=== PATIENT | male | born 1970 ===

== ENCOUNTER 2019-05-27 03:45 | Inpatient (IN) ==
[2019-05-27] MEDS ORDERED: MORPHINE IV ONE ×2 (03:47→07:52)
[2019-05-27] MEDS ORDERED: ZOFRAN IV ONE ×2 (03:47→06:39)
[2019-05-27] MEDS ORDERED: NS 1,000 ML IV ONE (03:47)
--- NOTE | 2019-05-27 03:51 | PROVIDER DOCUMENTATION ---
HPI-General Adult - General Chief Complaint: Nausea/Vomiting Stated Complaint: CROHNS-POSS BLOCKAGE/NAUSEA Time Seen by Provider: 05/27/19 03:46 Source: patient Allergies/Adverse Reactions: Patient Allergies Allergy/AdvReac Type Severity Reaction Status Date / Time meperidine [From Demerol] AdvReac Severe "aggression Verified 05/27/19 03:59 " Home Medications: Home Medication List Medication Instructions Recorded Confirmed Last Taken Type Budesonide [Budesonide ER] 9 mg PO DAILY 05/27/19 05/27/19 05/26/19 History Celecoxib [Celebrex] 200 mg PO DAILY 05/27/19 05/27/19 05/26/19 History Cyanocobalamin (Vitamin B-12) 1,000 mcg IM ORDERED 05/27/19 05/27/19 05/23/19 History [B-12 Compliance] Cyclobenzaprine [Flexeril] 10 mg PO TID 05/27/19 05/27/19 05/26/19 History Escitalopram Oxalate [Lexapro] 20 mg PO DAILY 05/27/19 05/27/19 05/26/19 History Folic Acid 1 mg PO DAILY 05/27/19 05/27/19 05/26/19 History Gabapentin [Neurontin] 300 mg PO TID 05/27/19 05/27/19 05/26/19 History Latanoprost 0.005% Oph Soln 1 drp BOTH EYES HS 05/27/19 05/27/19 05/26/19 History [Xalatan 0.005% Oph Soln] Losartan Potassium [Cozaar] 100 mg PO DAILY 05/27/19 05/27/19 05/26/19 History Methotrexate Sodium [Methotrexate] 25 mg SQ Q7D 05/27/19 05/27/19 05/23/19 History Modafinil 200 mg PO DAILY 05/27/19 05/27/19 05/26/19 History Triamterene/Hctz [Maxzide 75/50] 0.5 tab PO DAILY 05/27/19 05/27/19 05/26/19 History Ustekinumab [Stelara] 90 mg SQ ORDERED 05/27/19 05/27/19 05/24/19 History - History of Present Illness -Gen Adult Nature of Presenting Problems: Pt presents with ap and n/v, started 5 hours ago, pmh of crohns and feels similar to prior, admitted last month for the same, pt denies f/c, garcía, cp, sob, cough, diarrhea, pt is lying in bed in no acute distress. Location of Pain/Injury: reports: abdomen Pain Radiation: reports: no radiation Quality of Pain: reports: cramping Severity: reports: moderate Onset/Duration: reports: 4-6 hours ago Timing: reports: still present Context/Activities at Onset: reports: none Modifying Factors: improves with: nothing Associated Symptoms: reports: nausea, vomiting Similar Symptoms Previously?: Yes Recently seen or treated by another doctor?: Yes Review of Systems - Adult - REVIEW OF SYSTEMS - ADULT Constitutional: reports: no symptoms reported Eyes: reports: no symptoms reported Ears, Nose, Mouth & Throat: reports: no symptoms reported Cardiovascular: reports: no symptoms reported Respiratory: reports: no symptoms reported Gastrointestinal: reports: see HPI Genitourinary: reports: no symptoms reported Musculoskeletal: reports: no symptoms reported Integumentary: reports: no symptoms reported Neurological: reports: no symptoms reported Psychiatric: reports: no symptoms reported Endocrine: reports: no symptoms reported Hematologic/Lymphatic: reports: no symptoms reported Allergic/Immunologic: reports: no symptoms reported All Other Systems: Reviewed and Negative Past History - Adult - PAST MEDICAL HISTORY-ADULT Review of Records: reports: Old Records Reviewed, Nursing Assessment Review, Medications Reviewed, Social history reviewed & non-contributory. Major Childhood Illnesses: reports: denies history Cardiovascular: reports: denies history Respiratory: reports: denies history Gastrointestinal: reports: Crohn's Obstetrical/Gynecological: reports: denies history Genitourinary: reports: denies history Musculoskeletal: reports: denies history Neurological: reports: denies history Endocrine/Immune: reports: denies history Other Conditions: reports: denies history Physical Exam-General - PHYSICAL EXAM-ADULT Initial Vital Signs Reviewed: Yes - CONSTITUTIONAL General Appearance: appears well - EYES Eyes: PERRL/EOMI - HEAD, EARS, NOSE, MOUTH & THROAT HENMT: normocephalic/atraumatic - NECK Neck: normal inspection - RESPIRATORY Respiratory: lungs clear, no respiratory distress, no accessory muscle use - CARDIOVASCULAR Cardiovascular: regular rate, rhythm - GASTROINTESTINAL (ABDOMEN) Abdominal Exam: normal bowel sounds, non tender, soft, no organomegaly - LYMPHATIC Lymphatic: no adenopathy - MUSCULOSKELETAL Back Exam: normal inspection Extremity: normal range of motion - SKIN Integumentary: normal color - NEUROLOGIC Neurologic: grossly normal - PSYCHIATRIC Psych/Mental Status: normal mood/affect Progress - PLAN OF CARE/RESULTS Progress/Plan/Lab Results: Orders Category Date Time Status CT ABD/PELVIS W/PO AND IV CON [CT] Stat Exams 05/27/19 03:46 Ordered CBC WITH ELECTRONIC DIFF [HEME] Stat Lab 05/27/19 03:46 Uncollected COMPREHENSIVE METABOLIC PANEL [CHEM] Stat Lab 05/27/19 03:46 Uncollected LACTATE, PLASMA [CHEM] Stat Lab 05/27/19 03:46 Uncollected LIPASE [CHEM] Stat Lab 05/27/19 03:46 Uncollected Morphine Med 05/27/19 03:47 Once 4 mg IV NOW ONE Ns 1000 ml IV Bolus X1 Med 05/27/19 03:47 Ordered 0.9% Sodium Chloride Inj [Ns] 1,000 ml IV 999 mls/hr Ondansetron [Zofran] Med 05/27/19 03:47 Once 8 mg IV NOW ONE Result Diagrams: 05/27/19 03:49 05/27/19 03:49 Departure - Departure Date of Disposition Decision: 05/27/19 Time of Disposition Decision: 06:41 DIAGNOSIS: SBO (small bowel obstruction) Exacerbation of Crohn's disease Qualifiers: Digestive disease complication type: with intestinal obstruction Qualified Code(s): K50.912 - Crohn's disease, unspecified, with intestinal obstruction Disposition: ADMITTED INPATIENT 09 Certified Medical Emergency: Emergent Condition: Stable Referrals and Follow-Ups: None,PCP [NON-STAFF PROVIDER] - - Critical Care Note This patient required my direct & personal management of CC.: No Attestation - Physician/ DEIRDRE Attestation Patient care was provided by Advanced Practice Provider:: No The physician spent face to face time with patient:: Yes Advanced Practice Provider documentation review:: Supervising physician onsite and consulted in the evaluation and care of this patient. The physician did have a face to face encounter with the patient.
[2019-05-27 04:31] LABS: BASO# 0.01 X1000 (0.0-0.2); BASO% 0.1 % (0.0-0.8); EOS# 0.09 X1000 (0.0-0.7); EOS% 0.5 % (0.0-10.0); HEMATOCRIT 42.9 % (42.0-52.0); HEMOGLOBIN 13.1 g/dL (14.0-18.0); IMM GRAN# 0.05 X1000 (0.0-0.04); IMM GRAN% 0.3 % (0.0-0.5); LYMPH# 0.87 X1000 (1.2-3.4); LYMPH% 4.9 % (20.5-51.1); MCH 26.3 PG (27-31); MCHC 30.5 g/dL (33-37); MONO# 0.75 X1000 (0.11-0.59); MONO% 4.3 % (1.7-9.3); MPV 9.6 FL (7.4-10.4); NEUT# 15.82 X1000 (1.4-6.5); NEUT% 89.9 % (42.2-75.2); PLT 505 X1000 (130-400); RBC 4.99 XMIL (4.7-6.1); RDW 20.2 % (11.5-14.5); WBC 17.59 X1000 (4.8-10.8)
[2019-05-27 04:51] LABS: AGAP 20; ALB/GLOB RATIO 1.6; ALBUMIN 4.4 g/dL (3.5-5.0); ALKALINE PHOSPHATASE 81 U/L (32-122); BUN 18 mg/dL (8-22); CHLORIDE 96 mmol/L (98-107); COSMO 286; CREATININE 0.9 mg/dL (0.7-1.2); GLUCOSE 152 mg/dL (70-104); GOT 16 U/L (10-34); GPT 18 U/L (10-44); LIPASE 21 U/L (13-60); POTASSIUM 3.4 mmol/L (3.5-5.1); SODIUM 141 mmol/L (136-145); TCO2 25 mmol/L (25-35); TOTAL BILIRUBIN 0.54 mg/dL (0.20-1.00); TOTAL PROTEIN 7.1 g/dL (6.3-8.3)
[2019-05-27 05:28] LABS: CALCIUM 9.9 mg/dL (8.8-10.2)
--- NOTE | 2019-05-27 06:20 | Diag Imaging Result Doc PS360 ---
EXAM: CT ABD/PELVIS W/PO AND IV CON HISTORY: pmh of crohns, n/v, eval for SBO TECHNIQUE: CT abdomen and pelvis with intravenous contrast COMPARISON: CT report from 04/21/2019 FINDINGS: No calcified gallstones or adjacent inflammation. Tiny hepatic cyst, but no other hepatic abnormality. Normal spleen. No inflammation about the pancreas. Normal adrenal glands and kidneys. No hydronephrosis. Normal aorta. The stomach is distended and there are multiple overly distended small bowel loops in the mid and left abdomen. These measure up to 5.6 cm in diameter. The distal small bowel loops are not dilated. There are postsurgical changes in the right lower quadrant. The urinary bladder is distended and is normal. Normal prostate. Trace fluid in the pelvis. Small mesenteric nodes. IMPRESSION: Small bowel obstruction likely in the mid jejunum. This exam was performed using automated exposure control, adjustment of mA or kV according to patient size, and/or use of iterative reconstruction technique. Electronically signed by Dougie Bhatti 05/27/2019 6:18 AM
--- NOTE | 2019-05-27 07:28 | Diag Imaging Result Doc PS360 ---
EXAM: CHEST-PORTABLE 05/27/2019 HISTORY: NGT placement TECHNIQUE: AP portable at 0707 COMMENT: There is an NG tube with its tip in the stomach. There are multiple surgical clips in the right lower quadrant. There is a nonspecific bowel gas pattern. There are no previous studies. IMPRESSION: NG tube in the stomach. Electronically signed by Gen Rodriguez 05/27/2019 7:25 AM
[2019-05-27] MEDS ORDERED: OFIRMEV 1000 MG/ISOTONIC SOLN 1,000 MG/100 ML BOTTLE IV PRN (08:25)
[2019-05-27] MEDS ORDERED: ROBAXIN 1,000 MG in NS 50 ML IV PRN (08:25)
[2019-05-27] MEDS ORDERED: MORPHINE IV PRN (08:25)
[2019-05-27] MEDS ORDERED: ZOFRAN IV PRN (08:25)
[2019-05-27] MEDS ORDERED: APRESOLINE IV PRN (08:25)
[2019-05-27] MEDS ORDERED: SODIUM CHLORIDE 0.9% INJ SCH (08:30)
[2019-05-27] MEDS: NS 1,000 ML IV SCH ×2 (09:16→20:18)
[2019-05-27] MEDS: PROTONIX IV SCH ×2 (09:20→20:23)
[2019-05-27] MEDS: ZOSYN 3.375 GM in NS 50 ML IV SCH ×3 (09:23→20:19)
[2019-05-27 09:36] LABS: HEMOGLOBIN A1C 5.1 % (4.8-6.0)
[2019-05-27 09:50] LABS: FREE T4 0.97 ng/dL (0.93-1.70); TSH 3.89 uIUmL (0.27-4.20)
[2019-05-27] MEDS ORDERED: SODIUM CHLORIDE 0.9% INJ PRN (10:17)
[2019-05-27] MEDS ORDERED: PHENERGAN IV PRN (10:17)
[2019-05-27 11:12] LABS: URINE SOURCE CLEAN CATCH
[2019-05-27 11:17] LABS: BILIRUBIN URINE NEGATIVE (NEGATIVE); BLOOD URINE NEGATIVE (NEGATIVE); COLOR YELLOW; GLUCOSE URINE NEGATIVE (NEGATIVE); KETONE URINE TRACE mg/dL (NEGATIVE); LEUKOCYTES URINE NEGATIVE (NEGATIVE); NITRITE URINE NEGATIVE (NEGATIVE); PROTEIN URINE 30 mg/dL (NEGATIVE); TURBIDITY URINE CLEAR (CLEAR); UROBILINOGEN URINE NORMAL (NORMAL)
[2019-05-27 11:19] LABS: UR EPITHELIAL CELLS <10 /HPF (<10); URINE BACTERIA NEGATIVE /HPF; URINE RBC <10 /HPF (<10); URINE WBC <10 /HPF (<10)
[2019-05-27] MEDS: SOLU-MEDROL IV SCH ×2 (12:45→20:19)
--- NOTE | 2019-05-27 20:18 | HISTORY AND PHYSICAL ---
PRIMARY CARE PROVIDER: Dr. Lopez PRIMARY PLANT PATHOLOGY TEACHER: Located in [place] at the [facility], named Wil Bradshaw MD. CHIEF COMPLAINT: Epigastric abdominal pain with distention and severe nausea. HISTORY OF PRESENT ILLNESS: Mr. Jatin Espinoza is a 49-year-old male with a medical history of Crohn disease, on 3-medication treatment including budesonide, methotrexate, and Stelara. He has had a history of 2 colon resection of the terminal ileum secondary to Crohn's. He is followed by a Dr. Bradshaw in [place] at the [facility]. The patient states that really symptoms started back in June, approximately June 22. He was admitted to [facility], diagnosed with a small bowel obstruction, which resolved. He was okay until April 21. He went back to [facility] with a gastrointestinal bleed where he received 3 units of packed red blood cells. He did not have an upper or lower endoscopy after they spoke with his stove mechanic in [place], who wanted to defer those procedures, and then today, or actually last night around 10:30, he was here at work and started developing sudden onset of epigastric pain with abdominal distention, severe nausea, sweating, and weakness. His last bowel movement was at 11 p.m. Symptoms continued until he came to the emergency department where a CT scan diagnosed him with small bowel obstruction, likely in the mid jejunum. NG tube was placed. Antiemetics and pain medication started. Intravenous fluids started. He also has has leukocytosis and lactic acidosis with no obvious source of infection at this time. So, again fluid started. Antibiotics, including Zosyn, has been started. Consult in for General Surgery Dr. Rhodes. We will get him started on IV steroids. The patient feels like he does not need a GI consult with IV steroids, so we will defer that for now, and if needed we can also be in contact with his primary stove mechanic at the [facility]; however, it is about to be the weekend and they are not usually available over the weekend. The patient states that his Stelara, he normally was taking it every other month, but when he started having symptoms of Crohn's again, which he had been remained in remission for several years up until this past year, the Stelara was increased to monthly, and in July he is to follow up with his primary stove mechanic to reevaluate if the Stelara is working. Currently, vital signs are stable. NG tube is suctioning bile colored gastric secretions. The pain is being controlled. Antiemetics are controlling the nausea, so he is being admitted to the surgical floor for evaluation and further treatment. PAST MEDICAL HISTORY: 1. Crohn's disease. Apparently, he was in remission for several years up until June 2018. 2. History of small bowel obstructions with the last one being June 22 where he was followed at [facility]. 3. OCD. 4. Chronic pain syndrome with herniated disk in L3 through L5. 5. Anemia prevention while on B12 and folic acid secondary to having colon resections. 6. Hypertension. 7. He does not have glaucoma, but he is on preventative medication, Xalatan to help prevent it. 8. lieutenant shift supervisor sleepiness, is currently on modafinil for shift work fatigue prevention. 9. Gastrointestinal bleed. PAST SURGICAL HISTORY: He has had terminal ileum colon resection x2 in the right lower quadrant. SOCIAL HISTORY: Denies tobacco, alcohol or illicit drug use. He is . His daughter just had her 2-year-old birthday yesterday. 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 FAMILY HISTORY: Mother's side of the family has heart disease. Father's side of family has heart disease, and apparently his grandfather on his father's side had a heart attack in his late 40s. ALLERGIES: Demerol causes agitation. HOME MEDICATIONS: 1. Vitamin B12 at 1000 mcg intramuscular. 2. Budesonide 9 mg p.o. daily. 3. Celebrex 200 mg p.o. daily. 4. Cozaar 100 mg p.o. daily. 5. Flexeril 10 mg p.o. t.i.d. 6. Folic acid 1 mg p.o. daily. 7. Lexapro 20 mg p.o. daily. 8. Maxzide 75/50 one-half tablet p.o. daily. 9. Methotrexate 25 mg subcutaneous every 7 days. 10. Modafinil 200 mg p.o. daily. 11. Neurontin 300 mg p.o. t.i.d. 12. Stelara 90 mg subcutaneously monthly. 13. Latanoprost eye drop to both eyes nightly. REVIEW OF SYSTEMS: Fourteen point review of systems are complete and all were negative except for those mentioned in above HPI. He denies any fever or any other symptoms. PHYSICAL EXAMINATION: VITAL SIGNS: Temperature 97.8 degrees, heart rate 96, respiratory rate 18, blood pressure 131/83, and O2 saturation 95% on room air. He is 6 feet 4 inches tall, 215 pounds, BMI is 29.2. GENERAL: Mr. Jatin Espinoza is a 49-year-old male. He is in no acute distress. He is able answer questions appropriately. HEENT: Atraumatic, normocephalic. Pupils equal, round, reactive to light. Extraocular movements intact. Mucous membranes are dry. The left naris has NG tube. There is some old bloody drainage around that site. An NG tube was better secured with NG tube tape. NECK: Trachea midline. CARDIOVASCULAR: S1, S2. Regular rate and rhythm. No rubs, gallops, murmurs. No lower extremity edema. There are +2 dorsalis and radial pulses. Negative JVD or carotid bruits. PULMONARY: Clear to auscultate. Bilateral breath sounds. No accessory muscle use or work of breathing noted. ABDOMEN: Soft, tender in the epigastric region. Hypoactive bowel sounds. EXTREMITIES: Moves all extremities equally. Full range of motion. NEUROLOGIC: A and O x3. Follows commands. Sensory is intact. SKIN: Warm, dry, intact. LABORATORY DATA: White blood cells 17,000, hemoglobin 13, hematocrit 42, platelet count 505,000. Sodium 141, potassium 3.4, BUN 18, creatinine 0.9, glucose 152. Hemoglobin A1c is 5.1, calcium 9.9, bilirubin 0.54, AST 16, ALT 18, albumin 4.4, triglycerides 126, total cholesterol 180, LDL 118, lipase 21, serum lactate 3 and then a repeat was 1.3. TSH 3.89, free T4 is 0.97. IMAGING STUDIES: Chest x-ray, NG tube is in the stomach. Otherwise, no acute findings. Abdominal and pelvic CT, small bowel obstruction, likely in the mid jejunum. ASSESSMENT AND PLAN: 1. Small bowel obstruction with history of small bowel obstructions and 2 colon resections. Nasogastric tube is in place to low wall suction. Dr. Rhodes with general surgery has been consulted. He is being kept nothing by mouth. Pain medication is morphine, antiemetics are Zofran or Phenergan. 2. Crohn's disease. CRP has been ordered, currently pending. Technical Support Assistant is Wil Bradshaw MD, at [facility] in [place]. For now, budesonide, methotrexate, and Stelara are on hold, but I believe he added Stelara a few days ago and he gets that monthly. He will be reevaluated as that was changed from every 2 months to every 1 month and that is scheduled for July with his stove mechanic for reevaluation of that, so those medications will be on hold. We will do IV steroids scheduled for now. 3. Please add past medical history. 4. GI bleed. 5. Recent gastrointestinal bleed on April 21 where he received 3 units of packed red blood cells at [facility]. No interventions other than blood transfusion at that time. No signs or symptoms of bleeding. At this time the nasogastric tube has green bile, gastric secretions, and the hemoglobin and hematocrit are stable at 13 and 42. He is on B12 and folic acid at home. Those are currently going to be held for now. 6. Hypertension. Antihypertensives will be held and that is by mouth, so we will do as needed hydralazine. He is currently stable in the 130 systolic. 7. Chronic pain syndrome with L3 through L5 herniated disk. He is on Celebrex, Neurontin, and Flexeril at home. Currently, as needed morphine for the abdominal pain, which can also help with back pain, but he will also have as needed IV Robaxin as apparently the Flexeril is a scheduled medication for him. 8. Glaucoma prevention. We will continue his latanoprost. 9. lieutenant shift supervisor fatigue. He is on modafinil for that and that will be held. 10. Deep venous thrombosis prophylaxis. Sequential compression devices. He has had a history of recent gastrointestinal bleeding and he also has a little blood around the nasogastric tube site placement. Dictated by ANNIE Rogers for Leonard Jimenez MD cc: ANNIE Rogers MD Pt seen and examined; will place on steroids and consult Sarah agree with above plan as described; abdominal exam is soft distended but hypoactive bowel sounds. MTDD
[2019-05-27] MEDS: XALATAN 0.005% OPH SOLN BOTH EYES SCH (21:31)
[2019-05-27] MEDS: FLAGYL 500 MG/NS 500 MG/100 ML IVPB IV SCH (23:11)
[2019-05-28] MEDS: ZOSYN 3.375 GM in NS 50 ML IV SCH ×3 (02:20→16:02)
[2019-05-28] MEDS: FLAGYL 500 MG/NS 500 MG/100 ML IVPB IV SCH ×4 (04:43→22:41)
[2019-05-28] MEDS: SOLU-MEDROL IV SCH ×3 (04:43→21:00)
[2019-05-28] MEDS: NS 1,000 ML IV SCH ×2 (06:46→21:27)
[2019-05-28 07:33] LABS: BASO# 0.01 X1000 (0.0-0.2); BASO% 0.1 % (0.0-0.8); EOS# 0.05 X1000 (0.0-0.7); EOS% 0.4 % (0.0-10.0); HEMATOCRIT 35.9 % (42.0-52.0); HEMOGLOBIN 11.1 g/dL (14.0-18.0); IMM GRAN# 0.03 X1000 (0.0-0.04); IMM GRAN% 0.3 % (0.0-0.5); LYMPH# 0.48 X1000 (1.2-3.4); LYMPH% 4.3 % (20.5-51.1); MCH 26.9 PG (27-31); MCHC 30.9 g/dL (33-37); MCV 87.1 FL (81-99); MONO# 0.28 X1000 (0.11-0.59); MONO% 2.5 % (1.7-9.3); MPV 9.9 FL (7.4-10.4); NEUT# 10.36 X1000 (1.4-6.5); NEUT% 92.4 % (42.2-75.2); PLT 371 X1000 (130-400); RBC 4.12 XMIL (4.7-6.1); RDW 20.5 % (11.5-14.5); WBC 11.21 X1000 (4.8-10.8)
[2019-05-28 07:48] LABS: BANDS 4 % (0-1); LYMPHS 4 % (21-51); MONO 2 % (1-9); SEGS 90 % (42-75)
[2019-05-28] MEDS ORDERED: LOVENOX SUBQ SCH (09:00)
[2019-05-28] MEDS ORDERED: ENTOCORT EC PO SCH (09:00)
--- NOTE | 2019-05-28 09:10 | Diag Imaging Result Doc PS360 ---
EXAM: ABDOMEN FLAT/UPRIGHT HISTORY: sbo f/u TECHNIQUE: Two views COMPARISON: None. FINDINGS: There is oral contrast within the colon. There are several small bowel loops which are distended with air in the mid abdomen with air-fluid levels. There are surgical clips and sutures in the right lower quadrant. No organomegaly. Mild scoliosis. No abnormal abdominal calcifications. IMPRESSION: There is at least a partial small bowel obstruction Electronically signed by Dougie Bhatti 05/28/2019 9:08 AM
[2019-05-28 10:17] LABS: AGAP 15; ALB/GLOB RATIO 1.1; ALBUMIN 3.1 g/dL (3.5-5.0); ALKALINE PHOSPHATASE 58 U/L (32-122); BUN 13 mg/dL (8-22); CALCIUM 8.6 mg/dL (8.8-10.2); CHLORIDE 102 mmol/L (98-107); COSMO 278; CREATININE 0.7 mg/dL (0.7-1.2); GLUCOSE 171 mg/dL (70-104); GOT 12 U/L (10-34); GPT 12 U/L (10-44); MAGNESIUM 1.9 mg/dL (1.5-2.7); POTASSIUM 4.4 mmol/L (3.5-5.1); SODIUM 137 mmol/L (136-145); TCO2 20 mmol/L (25-35); TOTAL BILIRUBIN < 0.15 mg/dL (0.20-1.00); TOTAL PROTEIN 5.8 g/dL (6.3-8.3)
[2019-05-28] MEDS: PROTONIX IV SCH (11:01)
[2019-05-28] MEDS ORDERED: NS 1,000 ML IV SCH (16:42)
[2019-05-28] MEDS: FLEXERIL PO SCH (17:46)
[2019-05-28] MEDS: NEURONTIN PO SCH (17:46)
[2019-05-28] MEDS ORDERED: ROCEPHIN 1 GM in NS 50 ML IV SCH (18:00)
[2019-05-28] MEDS: MAXZIDE 75/50 PO SCH (18:08)
--- NOTE | 2019-05-28 19:34 | GENERAL SURGERY PROGRESS NOTE ---
DATE: 05/28/2019 SUBJECTIVE: Patient is doing well. He said he has passed gas. He is feeling better. OBJECTIVE: Vital Signs: Patient is currently afebrile. His vital signs are stable. General: No acute distress. HEENT: Normocephalic, atraumatic. Pupils equal, round, reactive to light. Mucous membranes moist. Oropharynx benign. Neck: Supple. Trachea midline. Cardiovascular: Regular rate and rhythm. Lungs: Grossly clear. Abdomen: Soft, nondistended. Extremities: Moves all extremities. Neurologic: Grossly intact. Skin: No signs of jaundice. Vascular: All extremities perfused. LABORATORY: None this morning. ASSESSMENT AND PLAN: A 49-year-old gentleman with small bowel obstruction secondary to Crohn's. Small bowel obstruction: At this time, I think he is improving. We will clamp his NG tube and give him clear liquids and see how he does. We will continue supportive care. cc: Daren Rhodes MD
[2019-05-28] MEDS: XALATAN 0.005% OPH SOLN BOTH EYES SCH (21:28)
--- NOTE | 2019-05-29 03:16 | PROGRESS NOTE ---
DATE: 05/28/2019 INTERVAL HISTORY: No acute events overnight. Mr. Espinoza has been passing gas and had bowel sounds, so surgical team had started him on a clear liquid diet, which he has been tolerating so far, though he has not had any bowel movement. SUBJECTIVE: Mr. Espinoza denies any chest pain, shortness of breath, cough. He states his abdominal pain has significantly gotten better. He is passing gas. OBJECTIVE: Vital signs: Currently temperature 98.4 degrees, pulse 109, respiratory rate 18, blood pressure 135/73. He is saturating 94% on room air. General: Not in any acute distress. HEENT: Oral cavity is moist. He has a nasogastric tube which is clamped. Lungs: Air entry bilaterally equal. No wheeze, rhonchi, or crackles. Cardiovascular: S1, S2 normal. No murmur, rub, or gallop. Abdomen: Obese, soft, nontender. Active bowel sounds. Extremities: He has bilateral lower extremity edema. Neurologic: He is alert and oriented x3. LABS: Suggestive of improving leukocytosis, normocytic anemia, normal platelet count. His hypokalemia is currently resolved. Normal kidney function. Microbiology: No positive data. IMAGING: Abdominal x-ray performed this morning suggests partial small-bowel obstruction. ASSESSMENT AND PLAN: 1. Small-bowel obstruction with history of small-bowel obstructions and resection of ileum due to Crohn disease in the past. Considering he has active bowel sounds and he has been passing gas, he has been started on clear liquid diet. I will decrease intravenous fluid rate. Continue antiemetic and intravenous pain medications as needed. 2. Crohn disease with elevated CRP level. Followed up outpatient by Dr. Bradshaw. I will continue his home budesonide, methotrexate, and intravenous steroids. I will also keep him on intravenous antibiotics. GI team on board and agrees with current plan. 3. History of recurrent gastrointestinal bleed leading to acute blood loss anemia requiring transfusions in March 2019. Currently, he denies any signs or symptoms of bleeding. His hemoglobin is stable. I will continue to monitor. 4. Essential hypertension. I will resume his home antihypertensive medications. 5. Others: Chronic pain and other medical conditions are stable and I will resume his home medication. DISPOSITION: I will monitor patient on surgical floor. Plan of care discussed with him, he is in agreement. All of his questions have been answered. cc: Scott Cross MD
[2019-05-29] MEDS: SOLU-MEDROL IV SCH ×2 (03:25→12:53)
[2019-05-29] MEDS: FLAGYL 500 MG/NS 500 MG/100 ML IVPB IV SCH ×4 (03:28→09:33)
[2019-05-29 06:56] LABS: HEMATOCRIT 35.8 % (42.0-52.0); HEMOGLOBIN 10.5 g/dL (14.0-18.0); IMM GRAN# 0.02 X1000 (0.0-0.04); IMM GRAN% 0.2 % (0.0-0.5); LYMPH# 0.45 X1000 (1.2-3.4); LYMPH% 3.8 % (20.5-51.1); MCH 25.7 PG (27-31); MCHC 29.3 g/dL (33-37); MCV 87.5 FL (81-99); MONO% 1.7 % (1.7-9.3); MPV 9.7 FL (7.4-10.4); NEUT# 11.15 X1000 (1.4-6.5); NEUT% 94.3 % (42.2-75.2); PLT 371 X1000 (130-400); RBC 4.09 XMIL (4.7-6.1); WBC 11.82 X1000 (4.8-10.8)
[2019-05-29 07:01] LABS: BANDS 4 % (0-1); LYMPHS 2 % (21-51); MONO 1 % (1-9); SEGS 93 % (42-75)
[2019-05-29 07:48] LABS: AGAP 13; ALB/GLOB RATIO 1.4; ALBUMIN 3.1 g/dL (3.5-5.0); ALKALINE PHOSPHATASE 55 U/L (32-122); BUN 12 mg/dL (8-22); CALCIUM 8.9 mg/dL (8.8-10.2); CHLORIDE 103 mmol/L (98-107); COSMO 278; CREATININE 0.7 mg/dL (0.7-1.2); GLUCOSE 143 mg/dL (70-104); GOT 14 U/L (10-34); GPT 10 U/L (10-44); POTASSIUM 4.3 mmol/L (3.5-5.1); SODIUM 138 mmol/L (136-145); TCO2 22 mmol/L (25-35); TOTAL BILIRUBIN 0.17 mg/dL (0.20-1.00); TOTAL PROTEIN 5.3 g/dL (6.3-8.3)
[2019-05-29] MEDS ORDERED: FOLIC ACID PO SCH (09:00)
[2019-05-29] MEDS ORDERED: PROVIGIL PO SCH (09:00)
[2019-05-29] MEDS ORDERED: ENTOCORT EC PO SCH (09:00)
[2019-05-29] MEDS ORDERED: COZAAR PO SCH (09:00)
[2019-05-29] MEDS ORDERED: LEXAPRO PO SCH (09:00)
[2019-05-29] MEDS: NEURONTIN PO SCH ×2 (09:26→12:52)
[2019-05-29] MEDS: FLEXERIL PO SCH ×2 (09:26→12:53)
[2019-05-29] MEDS: MAXZIDE 75/50 PO SCH (09:27)
--- NOTE | 2019-05-29 09:47 | GENERAL SURGERY PROGRESS NOTE ---
DATE: 05/29/2019 SUBJECTIVE: Patient seems to be doing okay. No major issues. He tolerated his tube being clamped. He has passed gas and had some liquidy stool, he said, but no real formed stool. OBJECTIVE: Vital Signs: The patient is currently afebrile. His vital signs are stable. General Examination: No acute distress. HEENT: Normocephalic, atraumatic. Pupils equal, round, reactive to light. Mucous membranes moist. Oropharynx benign. Neck: Supple. Trachea midline. Cardiovascular: Regular rate and rhythm. Lungs: Grossly clear. Abdomen: Soft, nontender, nondistended. Extremities: Moves all extremities. Neurologic: Grossly intact. Skin: No signs of jaundice. Vascular: All extremities perfused. Laboratory: Reviewed from yesterday. White blood cell count is decreasing at 11, hematocrit 35. Remainder of labs reviewed. Abdominal film from yesterday did show at least a partial small bowel obstruction but this seems better than previous. ASSESSMENT AND PLAN: A 49-year-old gentleman with small bowel obstruction secondary to Crohn's. Small bowel obstruction secondary to Crohn's. At this time, I think he is clinically improving. We will remove his nasogastric tube. We will put him on a full liquid diet and monitor him. cc: Daren Rhodes MD
[2019-05-29 14:13] VITALS: BP 131/82
--- NOTE | 2019-05-29 17:14 | DISCHARGE SUMMARY ---
ADMISSION DATE: 05/27/2019 DISCHARGE DATE: 05/29/2019 DISCHARGE DISPOSITION: Home. DISCHARGE CONDITION: Hemodynamically stable. Mr. Espinoza is eating liquid diet, has not had any nausea, vomiting, or abdominal pain. He has been having good bowel movements. He was advised to continue liquid diet. DISCHARGE DIAGNOSIS: 1. Small bowel obstruction with suspected obstruction in midjejunum. 2. Crohn disease with elevated CRP level. 3. Hypokalemia. OTHER DIAGNOSIS: 1. History of Crohn disease requiring 2 resections of terminal ileum being followed by gastroenterology clinic in [place]. 2. History of recurrent small bowel obstruction since June 2018. 3. History of recurrent gastrointestinal bleed since March 2019 requiring blood transfusion. 4. History of chronic pain syndrome with herniated disk L3-L5. DISCHARGE MEDICATIONS: 1. Vitamin B12 1000 mcg IM once a month. 2. Budesonide 9 mg extended release tablet daily. 3. Celecoxib 200 mg daily. 4. Losartan 100 mg daily. 5. Cyclobenzaprine 10 mg t.i.d. 6. Folic acid 1 mg daily. 7. Lexapro 20 mg daily. 8. Triamterene hydrochlorothiazide 75/50 half a tab daily. 9. Methotrexate 25 mg subcu every 7 days. 10. Modafinil 200 mg daily. 11. Gabapentin 300 mg t.i.d. 12. Stelara 90 mg once a month. 13. Latanoprost 2.5 mL drops 1 drop both eyes at nighttime. 14. Prednisone 22 tablets he is supposed to take 40 mg daily for 2 day then 30 mg daily for 2 days then 20 mg daily for 2 days then 10 mg daily for 4 days. DISCHARGE INSTRUCTIONS: He was provided these detailed discharge instructions about taking steroid taper and following up with routine GI within 10 to 14 days. He understood it. He was also advised to be on liquid diet for at least 2 to 3 days after discharge then advance it to softer food as tolerated. Vitals at time of discharge temperature 97.9 degrees, pulse 86, respiratory 17, blood pressure 130/80 saturating 99% room air. PHYSICAL EXAMINATION: Mr. Espinoza was not in acute distress. Oral cavity was moist. Air entry bilateral equal. No wheeze, rhonchi, crackles. S1, S2 normal. No murmur, rub, or gallop. Abdomen was soft, nontender. He did not have any lower extremity edema. He was alert and oriented x3. LABS: labs during admission discharge, his WBC was 17,000 presentation which improved to 11,000 at the time of discharge, his eosinophil count was 0%, his BUN was 12, creatinine 0.7, potassium 4.3 and sodium 138. His C-reactive protein was 13.3, significant microbiology, no blood culture growth. SIGNIFICANT IMAGING: On presentation abdomen pelvis CT had a small bowel obstruction likely in the mild jejunum however abdominal x-ray 24 hours later had only partial small- bowel obstruction however patient was having good bowel movement. HOSPITAL COURSE SUMMARY: Mr. Espinoza is a 49-year-old man with past medical history of Crohn disease who had required resection of intestines in the past whose Crohn disease was really under well control who came in with chief complaints of epigastric abdominal pain, distention with severe nausea, routinely he used to take oral budesonide, methotrexate and Stelara and his symptoms were well controlled until June 2018 when he started having small bowel obstructions which were managed conservatively and medically. In March 2019 he also had GI bleed requiring 2 units of PRBC. On the day of presentation he was at work and he started developing sudden onset epigastric pain and abdominal distention with severe nausea, swelling and weakness so he had decided to go to the emergency department where he was found to have small bowel obstruction midjejunum so NG tube was placed, antiemetics, pain medications were started and the NG tube was placed under suction. With decompression through the NG tube his symptoms and nausea improved and he had resumption of bowel movement with passing of gas. It was decided to start him on clear liquid diet which was later on advanced to full liquid diet. He was also being treated with intravenous antibiotics and intravenous steroids. With nonsurgical management his symptoms improved and at the time of discharge he was able to tolerate full liquid diet without any return of nausea, vomiting or abdominal pain and he was having regular bowel movements so it was decided to discharge him on oral prednisone taper with outpatient GI follow up at [place]. GI team Dr. Coronado was consulted inside the hospital and Dr. Rhodes was also on board. At the time of discharge detailed discharge instructions provided to him. TIME SPENT: More than 30 minutes. cc: MD HARSHAL Massey
--- NOTE | 2019-05-29 17:21 | GENERAL SURGERY CONSULTATION ---
DATE: 05/27/2019 REQUESTING PHYSICIAN: Hospitalist service. REASON FOR CONSULTATION: Bowel obstruction in the setting of Crohn's. HISTORY OF PRESENT ILLNESS: A 49-year-old gentleman with a history of Crohn's. He is managed at [place] in the [facility] presenting with epigastric pain, nausea, vomiting, distention. He was seen emergency department found to have a bowel obstruction likely related to Crohn's exacerbation. He was admitted by the hospitalist. I was asked to weigh an opinion. At the time of examination, patient was feeling better with an NG tube placed. His CT did show bowel obstruction. PAST MEDICAL HISTORY: 1. Includes Crohn disease. 2. History of bowel obstruction. 3. OCD. 4. Chronic pain syndrome. 5. History of anemia. 6. Hypertension. 7. Glaucoma. 8. Gastrointestinal bleeding. PAST SURGICAL HISTORY: Includes terminal ileum colonic resection x2. SOCIAL: Denies alcohol, tobacco, or illicit drugs. FAMILY HISTORY: Positive for heart disease. ALLERGIES: Demerol. HOME MEDICATIONS: Reviewed. REVIEW OF SYSTEMS: Full 14 systems reviewed, negative except as specified in HPI. PHYSICAL EXAMINATION: Vital Signs: Patient is currently afebrile. His vital signs stable. General: No acute distress. HEENT: Normocephalic, atraumatic. Pupils equal, round, reactive to light. Mucous membranes moist. Oropharynx benign. Neck: Supple. Trachea midline. Cardiovascular: Regular rate and rhythm. Lungs: Grossly clear. Abdomen: Soft. Minimally discomfort. Extremities: Moves all extremities. Neurologic: Grossly intact. Skin: No signs of jaundice. Vascular: All extremities perfused. LABORATORY/IMAGING: Reviewed. ASSESSMENT AND PLAN: 49-year-old gentleman with small bowel obstruction secondary to Crohn's. Small bowel obstruction and Crohn's. At this time agree with admission, NG tube decompression, agree with steroids try to get over the acute issue. Hopefully this will resolve the obstruction. Discussed with patient the possibility that if this does not improve he may need surgery. He agrees with plan. cc: Daren Rhodes MD MTDD
--- NOTE | 2019-05-29 21:02 | GASTROENTEROLOGY CONSULTATION ---
DATE: 05/28/2019 REASON FOR CONSULT: Crohn exacerbation. HISTORY OF PRESENT ILLNESS: Mr. Espinoza is a 49-year-old male with a history of Crohn disease. The patient is currently taking budesonide, methotrexate and Stelara for his Crohn's. He also has a history of 2 colon resections of the terminal ileum secondary to the Crohn disease, which was done by Dr. Bradshaw in [place] at the [facility]. The patient mentioned that his symptoms of abdominal pain had started in June and he was admitted to the [facility] with the diagnosis of small-bowel obstruction. This was resolved, and he was doing okay until April 21. He then went back to [facility] with a complaint of GI bleed. He mentioned receiving 3 units of red blood. They did not do a colonoscopy or any EGD, and the staff at the [facility] had spoken to his glazier apprentice in [place] who deferred the procedure. The patient mentioned that when he was at work on 05/26 at around 10:30, he started developing the same problems, epigastric pain, nausea, vomiting, abdominal distention, diaphoresis and feeling weak. He had a bowel movement in the night, but his symptoms continued and he came to the emergency department. An abdomen and pelvis CT showed that the patient had a small bowel obstruction likely in the mid jejunum. A chest x-ray showed the NG tube in the stomach. The patient has an NG tube to decompress his stomach. PAST MEDICAL HISTORY: Crohn disease, history of small-bowel obstruction, chronic pain syndrome with herniated disk in L3-L5, OCD, anemia. He is on vitamin B12 and folic acid secondary to colon resection, hypertension, and GI bleed. PAST SURGICAL HISTORY: He had terminal ileum colon resection twice in his right lower quadrant. SOCIAL HISTORY: The patient is . He works manufacturing shift supervisor as a pharmacist. He has denied any tobacco, alcohol, or illicit drugs. FAMILY HISTORY: No significant GI malignancies. ALLERGIES: The patient is allergic to Demerol. HOME MEDICATIONS: Vitamin B12 1000 mcg IM as ordered, Flexeril 10 mg 3 times a day, folic acid 1 mg tablet, Neurontin 300 mg 3 times a day, latanoprost 0.005% 1 drop in both eyes, losartan potassium 100 mg p.o. daily, methotrexate sodium 25 mg SQ once every 7 days, triamterene/hydrochlorothiazide 0.5 one tablet p.o. daily, Stelara 90 mg SQ as ordered, budesonide 9 mg p.o. daily, Celebrex 200 mg p.o. daily, Lexapro 20 mg p.o. daily and modafinil 200 mg daily. REVIEW OF SYSTEMS: As per HPI. Otherwise, 12 point review of system is negative. PHYSICAL EXAMINATION: Vital Signs: Temperature 97.7, pulse is 104, respirations 20, blood pressure 127/81, oxygen saturation 94% on room air. General: He is alert, oriented x3, and in no acute distress. HEENT: Pale conjunctivae. No icterus. PERRL. Neck: Supple. Lungs: Clear to auscultation in the anterior sherman. Cardiovascular: Patient is tachycardic. Abdomen: Soft, tender in the epigastric area, mildly distended. Hypoactive bowel sounds heard in all 4 quadrants. Extremities: No clubbing, no cyanosis, no edema. Pedal pulses 2+ present bilaterally. Neurological: Alert and oriented x3. Nonfocal. Cranial nerves 2-12 grossly intact. LABORATORY DATA: WBC is 11.21, RBC 4.12, hemoglobin 11.1, hematocrit 35.9, platelet count 371,000. Sodium 137, potassium 4.4, chloride 102, carbon dioxide 20, anion gap 15, BUN 13, creatinine 0.7, glucose 19, calcium 8.6, magnesium 1.9, total bilirubin less than 0.15. AST 12, ALT 12, alkaline phos 58. Urinalysis showed protein of 30 and trace ketones. IMAGING: Chest x-ray has shown NG tube in the stomach. Abdomen and pelvis CT has shown small bowel obstruction, likely in the mid jejunum. IMPRESSION AND PLAN: 1. Crohn disease. 2. Small bowel obstruction. 3. History of gastrointestinal bleed. 4. Hypertension. 5. Chronic pain syndrome. PLAN: Mr. Espinoza 49 year old male with the history of Crohn's disease, GI has been consulted for his Crohn's exacerbation The patient is receiving Flagyl antibiotics. He is being followed by his glazier apprentice in [place]. The patient's hemoglobin is 11.1 and hematocrit is 35.9. The patient is on the anemia prevention with vitamin B12 and folic acid. For the small bowel obstruction the patient has an NG tube in place on a low suction. Surgery has been consulted. The patient is currently NPO. We will continue to monitor the patient and follow the plan of care per primary care physician and the surgeon. If the patient's condition worsens we will plan to do a colonoscopy. This plan was discussed with Dr. Coronado. Thank you for your consult. Please call us for any further questions or concerns. Dictated by ANNIE Henriquez for Milo Coronado MD cc: Milo Coronado MD [facility]
--- NOTE | 2019-05-29 23:44 | GASTROENTEROLOGY PROGRESS NOTE ---
DATE: 05/29/2019 SUBJECTIVE: Mr. Espinoza is a 49-year-old male, sitting in his bed. Patient has denied any abdominal pain, nausea, or vomiting. The patient mentioned that he was getting discharged today. OBJECTIVE: Vital Signs: Temperature 97.9 degrees, pulse is 86, respirations 17, blood pressure 131/82, oxygen saturation 99% on room air. His weight is 215 pounds. BMI is 29.2 kg/m2. General: He is alert, oriented x3, in no acute distress. HEENT: Pale conjunctivae. No icterus. PERRL. Neck: Supple. Lungs: Clear to auscultation in the anterior sherman. Cardiovascular: Regular rate and rhythm. Abdomen: Soft, mildly tender and mildly distended. Hypoactive bowel sounds heard in all 4 quadrants. Extremities: No clubbing. No cyanosis. No edema. Pedal pulses 2+ present bilaterally. Neurological: Alert, oriented x3. LABORATORY: WBC is 11.82, RBC 4.9, hemoglobin 10.5, hematocrit 35.8, platelet count is 371,000. Sodium 138, potassium 4.3, chloride 103, carbon dioxide 22, BUN 12, creatinine 0.7, glucose 143, calcium 8.9, magnesium 3.0, total bilirubin 0.17, AST 14, ALT 10, alkaline phosphatase 55, albumin 3.1. IMPRESSION: 1. Crohn disease. 2. Small bowel obstruction. 3. History of gastrointestinal bleed. 4. Hypertension. 5. Chronic pain syndrome. PLAN: Mr. Espinoza is a 49-year-old male with a history of Crohn disease. GI is following him for his Crohn's disease and small bowel obstruction. The patient's hemoglobin and hematocrit today are 10.5 and 35.8. The patient had discharge orders to go home so we have given him a prescription for prednisone 10 mg. The patient is going to follow his hand compositor in [place]. This plan was discussed with Dr. Coronado. Please call us for any further questions or concerns. Dictated by ANNIE Henriquez for Milo Coronado MD cc: Milo Coronado MD [facility]
--- NOTE | 2019-05-30 04:10 | GENERAL SURGERY CONSULTATION ---
DATE: 05/27/2019 REQUESTING PHYSICIAN: Hospitalist. CONSULT CONCERNING: Partial small bowel obstruction in the setting of Crohn's. HISTORY OF PRESENT ILLNESS: A 49-year-old gentleman with a history of Crohn's, who presented with nausea and vomiting for 5-hours prior to presentation. He had been previously admitted for a similar obstruction. He has had surgery on his Crohn's before, bowel resections x2. He is treated normally at the [facility] in [place]. He is on several medications for his Crohn's. He is currently feeling better since he had an NG tube placed. I was asked to weigh an opinion. PAST MEDICAL HISTORY: Includes Crohn's, hypertension, anxiety, depression. PAST SURGICAL HISTORY: Includes previous exploratory laparotomy with small bowel resection. SOCIAL HISTORY: Nonsmoker. ALLERGIES: Demerol. HOME MEDICATIONS: Full list reviewed. He has been started on steroids. FAMILY HISTORY: Reviewed with patient, noncontributory. REVIEW OF SYSTEMS: A full 14-systems were reviewed are negative, except as specified in HPI. PHYSICAL EXAMINATION: Vital Signs: Patient is currently afebrile. His vital signs are stable. General: No acute distress, but appears uncomfortable. male, looks stated age. HEENT: Normocephalic, atraumatic. Pupils equal, round, and reactive to light. Mucous membranes moist. Oropharynx benign. Neck: Supple. Trachea midline. Cardiovascular: Regular rate and rhythm. Lungs: Grossly clear. Abdomen: Soft. Some discomfort diffusely, but no peritoneal signs. Extremities: Moves all extremities. Neurologic: Grossly intact. Skin: No signs of jaundice. Vascular: All extremities perfused. LABORATORY AND DIAGNOSTIC DATA: White blood cell count is 17, hematocrit is 42, platelet count 505,000. Remainder of labs reviewed. Of note, his C-reactive protein is 13.3. CT scan independently reviewed and radiology report reviewed. He does have a small bowel obstruction likely in the mid jejunum, most likely related to his Crohn's. ASSESSMENT AND PLAN: A 49-year-old gentleman with Crohn's related small bowel obstruction. Small bowel obstruction. At this time, agree with steroids. Hopefully, we can manage him without any major surgery, but discussed with the patient that if he does not improve, may need to consider surgical resection. He is aware. We will continue to follow while he is in the hospital. I appreciate the consult. cc: Daren Rhodes MD
== END 2019-05-29 15:59 | disposition home or self-care (01) | DRG 387 ==
LOC: SUPCPDRO → ED 03:45 → EDIPHOLD 03:46 → SUATTDRO 03:46 → 4N 10:47
PROVIDERS: ATTEND Internal Medicine